=== PATIENT | male | born 1980 | race Caucasian/White ===

== ENCOUNTER 2017-04-01 19:05 | Emergency (ER) | payer MEDICAID ==
[~2017-04-01] VITALS: Ht 165.1 cm; Wt 72.0 kg
[2017-04-01 19:54] VITALS: Ht 165.1 cm; Wt 72.0 kg
[2017-04-01] MEDS ORDERED: HYDR-906 PO (20:32)
[2017-04-01] MEDS ORDERED: CLIN-73 PO (20:32)
[2017-04-01] MEDS ORDERED: IBUP-1542 PO (20:32)
--- NOTE | 2017-04-01 20:58 | ERD ---
ER Documentation Chief Complaint Date/Time DATE: 04/01/17 TIME: 20:56 Chief Complaint ORAL PAIN AND SWELLING X 3 DAYS. HPI 36-year-old male presents in emergency department for complaints of pain and swelling surrounding the right third upper molar for 3 days. Patient describes the pain as throbbing pain, 8/10 scale, not better or worse with anything. Patient denies any fever or chills. Patient denies any trauma on affected area. Patient did not take any medications to help with symptoms. ROS All systems reviewed and are negative except as per history of present illness. Medications Home Meds Active Scripts Hydrocodone/Acetaminophen (Stanton 5-325 Tablet) 1 Each Tablet, 1 TAB PO Q6H Y for SEVERE PAIN LEVEL 7-10, #20 TAB Prov:JARED SHEPPARD [employer] 04/01/17 Clindamycin Hcl* (Clindamycin Hcl*) 300 Mg Capsule, 300 MG PO TID for 10 Days, CAP Prov:JARED SHEPPARD [employer] 04/01/17 Ibuprofen* (Motrin*) 600 Mg Tab, 600 MG PO Q6H Y for PAIN AND OR ELEVATED TEMP, #30 TAB Prov:JARED SHEPPARD [employer] 04/01/17 Allergies Allergies: Coded Allergies: No Known Allergy (Unverified , 04/01/17) PMhx/Soc Medical and Surgical Hx: pt denies Medical Hx, pt denies Surgical Hx FmHx Family History: No coronary disease, No diabetes, No other Physical Exam Vitals Vital Signs Date Time Temp Pulse Resp B/P Pulse Ox O2 Delivery O2 Flow Rate FiO2 04/01/17 19:54 100.2 92 18 125/82 99 Physical Exam GENERAL: The patient is well developed and appropriate for usual state of health, in no apparent distress. HEENT: Atraumatic. Ears: Normal tympanic membrane, no erythema or bulging. No ear canal swelling. No ear discharge. Nose: normal nasal turbinates, no erythema or swelling. Normal nasal discharge. Throat: oropharynx clear. No tonsillar swelling or tonsillar exudates. No lymphadenopathy. Noted erythema surrounding the right upper third molar with some impaction of the molar noted, no facial swelling noted. No fluctuance noted. CHEST: Clear to auscultation bilaterally. There are no rales, wheezes or rhonchi. HEART: Regular rate and rhythm. No murmurs, clicks, rubs or gallops. No S3 or S4. ABDOMEN: Soft, nontender and nondistended. Good bowel sounds. No rebound or guarding. No gross peritonitis. No gross organomegaly or masses. No Lynch sign or McBurney point tenderness. BACK: No midline or flank tenderness. EXTREMITIES: Equal pulses bilaterally. There is no peripheral clubbing, cyanosis or edema. No focal swelling or erythema. Full range of motion. Grossly neurovascularly intact. NEURO: Alert and oriented. Cranial nerves 2-12 intact. Motor strength in all 4 extremities with 5/5 strength. Sensation grossly intact. Normal speech and gait. SKIN: There is no apparent rash or petechia. The skin is warm and dry. HEMATOLOGIC AND LYMPHATIC: There is no evidence of excessive bruising or lymphedema. No gross cervical, axillary, or inguinal lymphadenopathy. Procedures/MDM Medical decision making: Patient symptoms for sepsis consistently impacted molar with possible early dental, possible gingivitis. No symptoms of any dental abscess at this time. Patient has low grade fever but does not have any symptoms of sepsis at this time. Patient appears well and is hemodynamically stable. Outpatient management is appropriate at this time, radiology exams I indicated at this time. Patient was given for clindamycin, ibuprofen, Stanton, is advised to see a dental specialist for further evaluation, possible removal of the impacted molar. Patient is advised to return to emergency department for any worsening symptoms. Disposition: Home. Stable. Departure Diagnosis: Primary Impression: Impacted molar Additional Impression: Dental disease Condition: Stable Patient Instructions: Dental Pain Referrals: [facility] ([facility] walk in clinic) JARED SHEPPARD NP Apr 01, 2017 20:58
== END 2017-04-01 20:45 | disposition home or self-care (01) ==
LOC: E/R 19:05
DX: K01.1 Impacted teeth (principal)
CPT/HCPCS: 99284